=== PATIENT | male | born 1985 | race Caucasian/White ===

== ENCOUNTER 2020-11-30 11:17 | Outpatient (CLI) | payer BC, SELFPAY ==
--- NOTE | 2020-12-06 09:21 | ONC CON_ITS ---
Dr. Min New Patient Note Patient: Patrice Calderon Unit #: [id number]: 1985 Dicatated By: Krista Min M.D.Date of Visit: Nov 30, 2020 Onc MED New Patient/Consult Referring Physician: No 'Referrals from' exist for this patient. History of Present Illness: Mr. 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 A left completion thyroidectomy was completed on November 03, 2013 showing a single focus of papillary thyroid carcinoma. No lymph nodes were noted in either mass. Subsequently underwent adjuvant radioactive iodine 100 mCi on November 21, 2013 and posttreatment total body scan which showed significant uptake in thyroid bed but no evidence of regional or distant metastatic disease., Subsequently patient was followed by his surgeon with TSH levels while on Synthroid and Cytomel. 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 Denies smoking, alcohol occasionally. Complaining of generalized weakness and fatigue, no palpitation, no lightheadedness or dizziness, no dyspnea on exertion, no skin rash, no night sweats, no muscle spasm, no diarrhea, no nausea or vomiting., Appetite is good, tolerating Synthroid 200 mcg p.o. daily well Past Medical History: Mr. Calderon's medical history consists of hammertoe, hypertension, hypothyroidism, and history of astrocytoma in 1986. Past Surgical History: Mr. Calderon's surgical/procedural history consists of covid vaccine([employer]) in 2020, thyroidectomy in 2013, mass excised from jaw in 2005, hip surgery in 1996, and astrocytoma in 1986. Medications: Levothyroxine Sodium 1 Tablet (of 200 mcg) Oral daily, Lisinopril-hydroCHLOROthiazide 1 Tablet (of 10-12.5 mg) Oral daily Allergies: Latex Social History: Mr. Calderon is single. Mr. Calderon has never smoked. He is a former drinker. Family History: Mr. Calderon's mother at age 59: myocardial infarction. Mr. Calderon's father at age 60: hypertension, and myocardial infarction. Review Of Symptoms: Constitutional - No fevers, chills, night sweats. Patient reports fatigue, weakness and intentional weight loss, ENMT - No problems with hearing, no sore throat, no sinus drainage, Endocrine - No diabetes, or hormone replacement. No hot flashes or night sweats. History of Thyroid Cancer, Respiratory - No dyspnea on exertion, chest pain, cough or hemoptysis, Cardiovascular - No anginal chest pain, palpitations or orthopnea, Integumentary - No chronic rashes, inflammation, ulcerations or skin changes. Vital Signs: Performed on Nov 30, 2020 13:09: 8, 7, 37.73 (HIGH), 2.51 sq.m, 73 in, 98 %, 80 /min, 18 /min, 125/83 mm(hg), 97.5 F (LOW), and 286 lbs (HIGH). Performance Status: 0 - Fully active, able to carry on all predisease activities without restrictions. (ECOG) Physical Examination: ENMT - No mouth sores, no thrush, no jaundice no cervical lymphadenopathy, Respiratory - Lungs are clear to auscultation, Cardiovascular - Regular rate and rhythm of heart, Abdomen - Soft, bowel sounds present, Extremities - No visible edema or rash. Lab/Imaging: Most recent lab results are not available for this patient. 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 A left completion thyroidectomy was completed on November 03, 2013 which showed a single focus of papillary thyroid carcinoma, no lymph nodes were noted in either masses T3, N0, M0, subsequently underwent radioactive iodine ablation on November 22, 2019, since then being followed with TSH while on thyroid supplement History of grade 1 astrocytoma involving brain status post resection done in [facility] in 1986. Hypertension Plan: Discussed with patient regarding his disease status, question concerns, clinically, patient is doing well with no signs symptom suggestive of recurrence of disease and lab work-up done by PMD on October 11, 2020 showed TSH 0.49 CBC white blood count 8.6 hemoglobin 14.7, hematocrit 44.2, platelets 242,000 with a normal differential CMP within normal limits , At this point, will consider follow-up ultrasound of the neck., Thyroglobulin level and thyroglobulin antibody level, thyroid function test, We will also refer him to endocrinology for evaluation regarding if there is evidence of MEN 1 syndrome and for routine follow-up as patient used to see endocrinology before. As far as generalized weakness and fatigue is concerned, could be multifactorial including stress and anxiety but considering his weight and size of neck, underlying sleep apnea cannot be ruled out, may suggest sleep study. Patient return to clinic in 2 weeks with above-mentioned work-up for further discussion Signed By: Krista Min M.D. <<Signature on File>>
== END 2020-11-30 11:18 | disposition home or self-care (01) ==
LOC: ONCMED 11:21
PROVIDERS: Family Provider Family Medicine; PCP Family Medicine; Visit Provider Internal Medicine Hematology & Oncology
DX: C73 Malignant neoplasm of thyroid gland (principal); C79.31 Secondary malignant neoplasm of brain; I10 Essential (primary) hypertension; Z79.899 Other long term (current) drug therapy
CPT/HCPCS: 99204

== ENCOUNTER 2021-05-02 14:48 | Outpatient (CLI) | payer BC, SELFPAY ==
--- NOTE | 2021-05-02 15:00 | US_ITS ---
WS: [id number] THYROID ULTRASOUND HISTORY: thyroid cancer, history of thyroidectomy with recurrence. COMPARISON: None available. There is very minimally prominent soft tissue at the thyroid bed. Symmetric in each thyroid bed with some very mild increased vascularity. No prior studies for comparison. No adenopathy identified. US/US thyroid [id number] IMPRESSION: Very minimally prominent increased soft tissue with vascularity of the thyroid bed, bilateral. Recurrence is not excluded. Recommend follow-up neck CT with IV contrast.
== END 2021-05-02 14:49 | disposition home or self-care (01) ==
LOC: RAD 14:53
PROVIDERS: PCP Family Medicine; Visit Provider Internal Medicine
DX: E89.0 Postprocedural hypothyroidism (principal); C73 Malignant neoplasm of thyroid gland
CPT/HCPCS: 76536

== ENCOUNTER → 2021-05-13 13:30 | Outpatient (BNVA) | payer BC, SELFPAY | PROVIDERS: PCP Family Medicine; Visit Provider Internal Medicine Pulmonary Disease | DX: Z01.812 Encounter for preprocedural laboratory examination (principal); Z20.822 Contact with and (suspected) exposure to COVID-19 | CPT/HCPCS: 87635 ==

== ENCOUNTER 2021-05-17 13:42 | Outpatient (CLI) | payer BC, SELFPAY ==
--- NOTE | 2021-05-17 13:50 | CT_ITS ---
WS: [id number] CT NECK TECHNIQUE: Contrast-enhanced CT of the neck with coronal and sagittal reformatted images. CLINICAL INFORMATION: C73 - Malignant neoplasm of thyroid gland COMPARISON: CT 9 24,017 DLP: 977.[address] scans at [facility] use at least one of these dose optimization techniques: automated e xposure control; mA and/or kV adjustment per patient size (includes targeted exams where dose is matc hed to clinical indication); or iterative reconstruction. FINDINGS: Prior postoperative changes total thyroidectomy with surgical clips in thyroidectomy bed. No definite evidence of residual or recurrent thyroid tissue in the thyroidectomy bed to correspond to the thyro id ultrasound May 02, 2021. Recommend interval follow-up with ultrasound for comparison. Normal posterior nasopharynx. Normal parapharyngeal fat. Normal palatine tonsils. No evidence of supraglott ic or glottic mass. Normal piriform sinuses. Normal subglottic airway. Mastoid air cells are well aerated. A few small polyps or retention cysts in the maxillary sinuses. P rior occipital craniotomy. Encephalomalacia in the cerebellum. Dural calcification. Partially visualized prominent temporal horns unchanged from previous. Parotid glands are normal. Submandibular glands are normal. No cervical lymphadenopathy. Lung apices are well aerated. CT/CT neck w con* [id number] IMPRESSION: 1. Prior postoperative changes total thyroidectomy. No definite evidence of re current or residual tissue in the thyroidectomy bed which appears unchanged sin ce 2017. Recommend follow-up with thyroid ultrasound for comparison to the rece thyroid ultrasound May 02, 2021 2. No cervical lymphadenopathy. 3. Normal salivary glands. 4. No evidence of supraglottic or glottic mass. Normal subglottic airway. 5. Prior postoperative changes occipital craniotomy with encephalomalacia righ t cerebellum.
[2021-05-17] MEDS: iohexol 300 mg/mL 100 mL Btl IV (14:10)
== END 2021-05-17 13:43 | disposition home or self-care (01) ==
PROVIDERS: PCP Family Medicine; Visit Provider Internal Medicine
DX: C73 Malignant neoplasm of thyroid gland (principal); E89.0 Postprocedural hypothyroidism
CPT/HCPCS: 70491; Q9967

== ENCOUNTER 2021-05-19 08:46 | Outpatient (CLI) | payer OTHER, SELFPAY ==
--- NOTE | 2021-05-19 10:19 | PFTS_ITS ---
Date of Study:05/19/21 Date of Dictation: 05/24/21 MECHANICS: Postbronchodilator forced vital capacity (FVC) is reduced. Postbronchodilator forced expiratory volume in one second (FEV1) is severely reduced. FEV1/FVC is normal. There is no significant response to bronchodilators. FLOW VOLUME LOOP: Sloping of expiratory limb suggestive of airway obstruction LUNG VOLUMES: Total lung capacity (TLC) is mildly reduced. Residual volume (RV) is increased suggestive of mild air trapping. RV/TLC is suggestive of hyperinflation. DIFFUSING CAPACITY FOR CARBON MONOXIDE: Mildly reduced 65% . INTERPRETATION: The PFTs show mixed pattern. Postbronchodilator spirometry suggestive of severe restriction with mildly reduced lung volumes. However increased RV and RV by TLC suggestive of air trapping and hyperinflation, and significant bronchodilator response mid flows indirectly suggestive of coexisting small airway obstruction. There is mild gas transfer defect. Clinical correlation recommended. [facility]
== END 2021-05-19 08:47 | disposition home or self-care (01) ==
LOC: RT 08:50
PROVIDERS: PCP Family Medicine; Visit Provider Internal Medicine Pulmonary Disease
DX: J45.909 Unspecified asthma, uncomplicated (principal)
CPT/HCPCS: 94060; 94726; 94729; J7611

== ENCOUNTER 2021-11-04 07:47 | Outpatient (CLI) | payer OTHER, SELFPAY ==
--- NOTE | 2021-11-04 08:30 | CT_ITS ---
WS: [id number] Exam: CT chest wo con [id number] Date/Time of Exam: 11/04/2021 8:10 AM Reason For Exam: HRCT to rule out interstitial lung disease DLP: 1416.[address] scans at [facility] use at least one of these dose optimization techniques: automated e xposure control; mA and/or kV adjustment per patient size (includes targeted exams where dose is matc hed to clinical indication); or iterative reconstruction. High-resolution CT scan of the chest is performed. The lungs are clear and fully expanded. No sign of interstitial lung disease or central lobar emphyse matous change. The trachea and mainstem bronchi are patent. Small benign-appearing calcified nodule i n the posterior right lower lobe. No pleural or pericardial effusion seen. The thoracic aorta is norm al in caliber. No lymphadenopathy in the chest. Bony structures are unremarkable. CT sections the upp er abdomen are normal in appearance. CT/CT chest wo con [id number] IMPRESSION: 1. No sign of interstitial lung disease. The lungs are bilaterally clear. 2. No suspicious pulmonary nodule or lymphadenopathy in the chest. 3. Small partially calcified nodule in the right lower lobe that has benign matt earance.
== END 2021-11-04 07:48 | disposition home or self-care (01) ==
LOC: RAD 07:47
PROVIDERS: PCP Family Medicine; Visit Provider Internal Medicine Pulmonary Disease
DX: R94.2 Abnormal results of pulmonary function studies (principal); R91.1 Solitary pulmonary nodule
CPT/HCPCS: 71250

== ENCOUNTER 2021-11-14 06:35 | Outpatient (CLI) | payer OTHER, SELFPAY ==
--- NOTE | 2021-11-14 07:15 | USCV_ITS ---
Patrice Calderon Age: 36 Gender: M : 1985 Exam Date: 11/14/2021 06:47 Ordering Phys: Hasmukh Woodson MD Technologist: Zainab Maxwell Exam Location: [facility] [place] Indication: UNINTENTIONAL WEIGHT GAIN BP: 146 / 80 HR: 66 Rhythm: Sinus Technical Quality: Adequate MEASUREMENTS (Male / Female) Normal Values 2D ECHO LV Diastolic Diameter PLAX 4.5 cm 4.2 - 5.9 / 3.9 - 5.3 cm LV Systolic Diameter PLAX 3.0 cm LV Chamber Size 3.8 cm IVS Diastolic Thickness 1.2 cm 0.6 - 1.0 / 0.6 - 0.9 cm IVS Systolic Thickness 1.5 cm LVPW Diastolic Thickness 1.4 cm 0.6 - 1.0 / 0.6 - 0.9 cm LVPW Systolic Thickness 1.7 cm RV Chamber Size 3.7 cm LVOT Diameter 2.0 cm LV Ejection Fraction 2D Teich 61.3 % LV Ejection Fraction MOD 2C 46.4 % LV Ejection Fraction 2C AL 50.3 % LA Diameter 3.7 cm LA Width 2.7 cm LA Height 3.6 cm RA Width 3.0 cm RA Height 4.1 cm Aorta at Sinotubular Diameter 3.4 cm M-MODE Aortic Annulus Diameter 4.4 cm LA Ao Ratio MM 1.1 MV E Point Septal Separation 0.2 cm DOPPLER AV Peak Velocity 113.0 cm/s LVOT Peak Velocity 107.0 cm/s AV Area Cont Eq vti 3.0 cm squared AV Area Cont Eq pk 3.1 cm squared MV Area PHT 3.2 cm squared Mitral E to A Ratio 1.4 MV E' Velocity 46.0 cm/s Mitral E to MV E' Ratio 14.0 Mitral E to LV E' Lateral Ratio 17.0 Mitral E to LV E' Septal Ratio 12.1 TR Peak Velocity 114.6 cm/s TR Peak Gradient 5.3 mmHg TR Mean Velocity 78.3 cm/s TR Mean Gradient 2.8 mmHg TR Velocity Time Integral 25.2 cm TV Peak E Velocity 80.0 cm/s Right Atrial Pressure 3.0 mmHg Pulmonary Artery Systolic Pressu 8.3 mmHg PV Peak Velocity 65.0 cm/s RV Acceleration Time 0.1 s RV Ejection Time 0.3 s RV AcT/ET 0.4 FINDINGS Left Ventricle Normal left ventricular size, systolic function and wall thickness, with no regional wall motion abnormalities. Left ventricular ejection fraction is estimated at 65 %. Normal diastolic function. Right Ventricle Normal right ventricular size and systolic function. Right ventricular systolic pressure 8.3 mmHg. Right Atrium Normal right atrial size. Left Atrium Normal left atrial size. Mitral Valve Structurally normal mitral valve. No mitral valve stenosis. Trace mitral valve regurgitation. Aortic Valve Structurally normal trileaflet aortic valve. No aortic valve stenosis. No aortic valve regurgitation. Tricuspid Valve Structurally normal tricuspid valve. No tricuspid valve stenosis. Trace tricuspid valve regurgitation. Pulmonic Valve Structurally normal pulmonic valve. No pulmonary valve stenosis. Trace pulmonary valve regurgitation. Pericardium No pericardial effusion. Aorta Normal size aortic root. CONCLUSIONS 1. Normal left ventricular size, systolic function and wall thickness, with no regional wall motion abnormalities. Left ventricular ejection fraction is estimated at 65 %. Normal diastolic function. 2. Normal right ventricular size and systolic function. 3. No significant valvular abnormality. 4. No prior similar studies to compare. Carley Mayorga MD (Electronically Signed) Final Date: 15 November 2021 17:14 S
== END 2021-11-14 06:36 | disposition home or self-care (01) ==
LOC: RAD 06:36
PROVIDERS: PCP Family Medicine; Visit Provider Internal Medicine Pulmonary Disease
DX: R63.5 Abnormal weight gain (principal)
CPT/HCPCS: 93306

== ENCOUNTER 2024-06-09 11:42 | Emergency (ER) | payer BC, SELFPAY ==
[2024-06-09 11:45] VITALS: BP 124/88; PULSE 83; RESP 17; TEMP 36.7; O2SAT 100; BMI 35.3
--- NOTE | 2024-06-09 11:49 | ED.C_ITS ---
HPI - Psych 2 General: Chief Complaint: Psychiatric Symptoms Stated Complaint: SI Time Seen by Provider: 06/09/24 11:42 Source: patient and EMS Mode of arrival: EMS Limitations: no limitations History of Present Illness: 39-year-old male states that he has been having a lot of life stressors states that stress at work states he is going through a custody gonzales with his ex- has been having some depression states he started Paxil last week he had some worsening depression he was at the clinic today and asked him to suicide question he states he did have a thought of jumping off a bridge she does admit that to me as well but states that he is not actively suicidal states that he does not feel like he is going to kill himself but states he has had passing thoughts and some depression. Denies any worsening improving factors. Associated symptoms: Reports depression and suicidal ideation Related Data Home Medications Medication Instructions Recorded Confirmed lisinopril 10 mg tablet 10 mg PO DAILY 06/09/24 06/09/24 paroxetine HCl 10 mg tablet 10 mg PO DAILY 06/09/24 06/09/24 Previous Rx's Medication Instructions Recorded ipratropium 0.5 mg-albuterol 3 mg 3 ml inhalation Q4H PRN wheezing 03/16/21 (2.5 mg base)/3 mL nebulization #15 mL soln nebulizers #1 ea 03/16/21 epinephrine 0.3 mg/0.3 mL 0.3 mg (0.3 mL) IM Q4H PRN 12/26/21 injection, auto-injector (EpiPen) anaphylaxis #2 ea albuterol sulfate 90 mcg/actuation 2 inh inhalation QID PRN shortness 03/29/22 aerosol inhaler (Ventolin HFA) of breath or wheezing #8.5 grams levothyroxine 200 mcg tablet See Rx Instructions .Route 03/20/23 .COMPLEX #90 tabs tiotropium bromide 1.25 2 puff inhalation DAILY #4 grams 05/22/23 mcg/actuation mist for inhalation (Spiriva Respimat) montelukast 10 mg tablet 10 mg PO DAILY #30 tabs 06/15/23 (Singulair) fluticasone furoate 100 1 inh inhalation DAILY #60 ea 09/21/23 mcg-vilanterol 25 mcg/dose inhalation powder (Breo Ellipta) bupropion HCl 150 mg 24 hr tablet, 150 mg PO QAM #30 tabs 06/09/24 extended release (Wellbutrin XL) Allergies Allergy/AdvReac Type Severity Reaction Status Date / Time Latex, Natural Rubber Allergy Unknown Unknown Verified 12/12/23 13:09 Review of Systems 2 Const: Denies: fever(s), chills, body aches or change in appetite ENMT: Denies: throat pain or dental pain Card: Denies: chest pain Resp: Denies: dyspnea GI: Denies: abdominal pain, nausea, vomiting or diarrhea Musc: Denies: neck pain or back pain Skin/Breast: Denies: rash Neuro: Denies: headache(s) Psych: Reports: depression and suicidal ideation PFSH ED 2 PFSH: Medical History Thyroid cancer Surgical History H/O total thyroidectomy Family History Other Hypertension Social History Smoking and tobacco/nicotine status: never used tobacco/nicotine Second hand smoke exposure: No Alcohol intake: never Substance/Drug Use: never Physical Exam 2 Const: COMMON NORMALS: no acute distress, patient oriented x3 and healthy appearing HENMT: COMMON NORMALS: normocephalic and atraumatic HEAD & SCALP: n ormocephalic and atraumatic Neck/C-Spine: COMMON NORMALS: full ROM and supple Chest: COMMONS NORMALS: normal inspection of the chest Resp: COMMON NORMALS: normal respiratory effort Cardio: COMMON NORMALS: regular rate, regular rhythm and No murmurs present (Cardio) RATE: regular rate RHYTHM: regular rhythm Extremity: COMMON NORMALS: normal to inspection and full ROM Neuro: COMMON NORMALS: patient oriented x3, moves all extremities and no focal motor deficits Psych: COMMON NORMALS: mental status grossly normal, Normal thought process present and cooperative MOOD & AFFECT: Yes depressed mood THOUGHT PROCESS: Normal thought process present Skin: COMMON NORMALS: no rashes or lesions noted and no wounds GENERAL SKIN EXAM: no rashes or lesions noted Course 2 Vital Signs: Vital signs: Vital Signs Temperature 98.0 F 06/09/24 11:45 Pulse Rate 83 06/09/24 11:45 Respiratory Rate 17 06/09/24 11:45 Blood Pressure 124/88 06/09/24 11:45 Pulse Oximetry 100 06/09/24 11:45 Oxygen Delivery Me thod Room Air 06/09/24 11:45 MDM - Psych Medical Decision Making Patient presents here with depression he is not actively suicidal at this time had him evaluated by our psychiatrist who agrees he does not require inpatient admission will stop his Paxil we will start him on Wellbutrin we will get him follow-up with [facility] [place] he is to follow-up with crisis center or return here if he has any worsening he understands agrees to plan. Medical Records I reviewed the patient's medical records. Lab Data I reviewed the patient's lab results. 06/09/24 12:33 06/09/24 12:33 Laboratory Results WBC 9.12 10^3/uL (3.29-11.43) 06/09/24 12:33 RBC 5.06 10^6/uL (3.85-5.65) 06/09/24 12:33 Hgb 15.70 g/dL (11.27-16.99) 06/09/24 12:33 Hct 47.8 % (37-53) 06/09/24 12:33 MCV 94.5 fl (82-101) 06/09/24 12:33 MCH 31.0 pg (27-33) 06/09/24 12:33 MCHC 32.8 g/dL (30-55) 06/09/24 12:33 RDW 12.9 % (12.1-15.1) 06/09/24 12:33 Plt Count 240 10^3/cmm (157-399) 06/09/24 12:33 MPV 11.0 fL (7.4-10.4) H 06/09/24 12:33 Neut % (Auto) 72.4 % 06/09/24 12:33 Lymph % (Auto) 17.7 % 06/09/24 12:33 Falls % (Auto) 7.2 % 06/09/24 12:33 Eos % (Auto) 1.2 % 06/09/24 12:33 Baso % (Auto) 0.8 % 06/09/24 12:33 Neut # (Auto) 6.61 10^3/uL (1.8-7.7) 06/09/24 12:33 Lymph # (Auto) 1.6 10^3/uL (0.8-4.8) 06/09/24 12:33 Falls # (Auto) 0.7 10^3/uL (0.2-0.9) 06/09/24 12:33 Eos # (Auto) 0.1 10^3/uL (0.0-0.8) 06/09/24 12:33 Baso # (Auto) 0.1 10^3/uL (0.0-0.1) 06/09/24 12:33 Nucleated RBC % (auto) 0 % 06/09/24 12:33 Nucleated RBCs # 0.0 /100WBC 06/09/24 12:33 Sodium 141 mmol/L (136-145) 06/09/24 12:33 Potassium 4.4 mmol/L (3.5-5.1) 06/09/24 12:33 Chloride 105 mmol/L (98-107) 06/09/24 12:33 Carbon Dioxide 27 mmol/L (22-29) 06/09/24 12:33 Anion Gap 13.4 (5-19) 06/09/24 12:33 BUN 9 mg/dL (6-20) 06/09/24 12:33 Creatinine 0.8 mg/dL (0.7-1.2) 06/09/24 12:33 GFR Calculation 107.6 mL/min (90-130) 06/09/24 12:33 Glucose 96 mg/dL (65-115) 06/09/24 12:33 Calculated Osmolality 291 mOsm/kg (285-295) 06/09/24 12:33 Calcium 9.0 mg/dL (8.5-10.5) 06/09/24 12:33 Total Bilirubin 0.5 mg/dL (0.15-1.2) 06/09/24 12:33 AST 21 U/L (0-40) 06/09/24 12:33 ALT 24 U/L (0-41) 06/09/24 12:33 Alkaline Phosphatase 57 U/L (40-130) 06/09/24 12:33 Total Protein 6.9 g/dL (6.6-8.7) 06/09/24 12:33 Albumin 4.5 g/dL (3.5-5.2) 06/09/24 12:33 Globulin 2.4 g/dL (1.3-4.6) 06/09/24 12:33 TSH 2.85 uIU/mL (0.27-4.20) 06/09/24 12:33 Salicylates 1.2 mg/dL (3-10) L 06/09/24 12:33 Urine Opiates Screen Negative ng/mL (Negative) 06/09/24 12:05 Acetaminophen < 5.0 ug/mL (10-30) L 06/09/24 12:33 Ur Barbiturates Screen Negative ng/mL (Negative) 06/09/24 12:05 Ur Phencyclidine Scrn Negative ng/mL (Negative) 06/09/24 12:05 Ur Amphetamines Screen Positive ng/mL (Negative) H 06/09/24 12:05 U Benzodiazepines Scrn Negative ng/mL (Negative) 06/09/24 12:05 Urine Cocaine Screen Negative ng/mL (Negative) 06/09/24 12:05 U Marijuana (THC) Screen Negative ng/mL (Negative) 06/09/24 12:05 Ethyl Alcohol < 10 mg/dL (0-10) 06/09/24 12:33 No radiology studies performed this visit Discharge Plan Discharge Patient Disposition: Home Clinical Impression: Depression Condition: Stable Prescriptions: New bupropion HCl [Wellbutrin XL] 150 mg tablet extended release 24 hr 150 mg PO QAM Qty: 30 0RF No Action ipratropium-albuterol 0.5 mg-3 mg(2.5 mg base)/3 mL solution for nebulization 3 ml inhalation Q4H PRN (Reason: wheezing) Qty: 15 3RF (DME) nebulizers Misc See Rx Instructions .Route Qty: 1 0RF Rx Instructions: As directed epinephrine [EpiPen] 0.3 mg/0.3 mL auto-injector 0.3 mg IM Q4H PRN (Reason: anaphylaxis) Qty: 2 1RF albuterol sulfate [Ventolin HFA] 90 mcg/actuation HFA aerosol inhaler 2 inh inhalation QID PRN (Reason: shortness of breath or wheezing) Qty: 8.5 5RF levothyroxine 200 mcg tablet See Rx Instructions .ROUTE .COMPLEX Qty: 90 0RF Dose Instruction: TAKE 1 TABLET BY MOUTH DAILY ONE HOUR BEFORE ANY MEAL OR MEDICATION Rx Instructions: TAKE 1 TABLET BY MOUTH DAILY ONE HOUR BEFORE ANY MEAL OR MEDICATION Spiriva Respimat 1.25 mcg/actuation mist 2 puff inhalation DAILY Qty: 4 6RF montelukast [Singulair] 10 mg tablet 10 mg PO DAILY Qty: 30 6RF fluticasone furoate-vilanterol [Breo Ellipta] 100-25 mcg/dose blister with device 1 inh inhalation DAILY Qty: 60 0RF paroxetine HCl 10 mg tablet 10 mg PO DAILY lisinopril 10 mg tablet 10 mg PO DAILY Discharge Orders: Discharge ED (Routine); Ordered 06/09/24 Ordered By: Carlos Castro Referrals: Tip Gomez [Primary Care Provider] - Discharge Diet: Advance as tolerated Discharge Activity: Resume usual activity Patient Instructions: Depression (ED) Stand Alone Forms: Work/School Release Coding Level of Care Code ED Block Feeder for Kendall Diaz
[2024-06-09 12:21] LABS: Amphetamines Screen Urine Positive (Negative); Barbiturates Screen Urine Negative (Negative); Benzodiazepines Screen Urine Negative (Negative); Cocaine Screen Urine Negative (Negative); Opiate Screen Urine Negative (Negative); PCP Screen Urine Negative (Negative); THC Screen Urine Negative (Negative)
[2024-06-09 12:58] LABS: Basophils # 0.1 10^3/uL (0.0-0.1); Basophils % 0.8 %; Eosinophils # 0.1 10^3/uL (0.0-0.8); Eosinophils % 1.2 %; Hematocrit 47.8 % (37-53); Lymphocytes # 1.6 10^3/uL (0.8-4.8); Lymphocytes % 17.7 %; Mean Corpuscular HGB Conc 32.8 g/dL (30-55); Mean Corpuscular Volume 94.5 fl (82-101); Monocytes # 0.7 10^3/uL (0.2-0.9); Monocytes % 7.2 %; Neutrophils # 6.61 10^3/uL (1.8-7.7); Neutrophils % 72.4 %; Nucleated Red Blood Cells % 0 %; Platelet Count 240 10^3/cmm (157-399); Red Blood Count 5.06 10^6/uL (3.85-5.65); Red Cell Distribution Width 12.9 % (12.1-15.1); White Blood Count 9.12 10^3/uL (3.29-11.43)
[2024-06-09 13:32] LABS: Alanine Aminotransferase 24 U/L (0-41); Albumin Level 4.5 g/dL (3.5-5.2); Alkaline Phosphatase 57 U/L (40-130); Anion Gap 13.4 (5-19); Aspartate Amino Transferase 21 U/L (0-40); Blood Urea Nitrogen 9 mg/dL (6-20); Carbon Dioxide 27 mmol/L (22-29); Chloride 105 mmol/L (98-107); Creatinine Clr Calc Pharmacy 169.3244; Globulin 2.4 g/dL (1.3-4.6); Glomerular Filtration Rate 107.6 mL/min (90-130); Glucose 96 mg/dL (65-115); Osmolality Calculated 291 mOsm/kg (285-295); Potassium 4.4 mmol/L (3.5-5.1); Salicylate 1.2 mg/dL (3-10); Sodium 141 mmol/L (136-145); Thyroid Stimulating Hormone 2.85 uIU/mL (0.27-4.20); Total Bilirubin 0.5 mg/dL (0.15-1.2); Total Protein 6.9 g/dL (6.6-8.7)
[2024-06-09 13:34] LABS: Acetaminophen < 5.0 ug/mL (10-30); Alcohol Level < 10 mg/dL (0-10)
--- NOTE | 2024-06-09 17:24 | DCPLANNER ---
messaged [facility] for er f/u
== END 2024-06-09 17:50 | disposition home or self-care (01) ==
PROVIDERS: Emergency Provider Emergency Medicine; PCP Family Medicine
DX: F32.A Depression, unspecified (principal); C73 Malignant neoplasm of thyroid gland
CPT/HCPCS: 36415; 80053; 80306; 80307; 84443; 85025; 99283